=== PATIENT | female | born 1960 | race Caucasian/White ===

== ENCOUNTER → 2016-08-14 | Outpatient (CLI) | payer BC ==
[~2016-08-14] MED LIST: GABA-586 PO; IBUP200C9 PO; IOHEXOL 180 MG/ML 10 ML VIAL. ONE; TEMA15CA PO; methylPREDNISolone ACETATE 40 MG/ML VIAL. ONE; methylPREDNISolone ACETATE 80 MG/ML VIAL. ONE
--- NOTE | 2016-08-15 09:45 | PAIN ---
DATE OF SERVICE: 08/14/2016 INITIAL CONSULTATION CHIEF COMPLAINT: Low back and left lower extremity pain. HISTORY OF PRESENT ILLNESS: This is a 56-year-old female who presents with history of pain in the low back, left lower extremity for about 1 year, gradually increasing, getting worse over the past few months in the low back radiating to the posterior gluteus, posterolateral thigh, posterior calf, into the arch of the foot and into the toes, mostly in the lateral aspect. The patient reports it is a sharp stabbing pain, changes during the day, worse with standing and walking, worse with lying down, has waken her from her sleep significantly, numbness and tingling in the left leg as well. No symptoms on the right leg. The patient reports it awakens her from sleep at least 5-10 times a night, does not affect her bowel or bladder control, but does affect her ability to walk. 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 The patient reports no injury or accident that she is aware of, but the pain began to increase about a year ago and much worse over the past two to three months. The patient rates her disability rate from 0 to 10, 10 being the worst, is a 5 with family and home responsibilities, 7 with recreation and social activity, 4 with occupation, 0 with sexual behavior, 1 with self care and 1 with life support activities. The patient has had some chiropractic treatment as well as doing exercise on her own and a trigger point injection in the low back, which was not significantly improving the pain afterwards. The patient has been taking Advil, which reports did not help the pain. No other medications at this time for the pain itself. The patient reports no loss of motor function, but significant fatigability with the left leg, especially with standing and walking, but most painful when she is lying on her back, flat on her back. She is having to sleep on her right side, curled up in the position. The patient has some tingling in the leg as well as a burning sensation on the left side as well. PAST MEDICAL HISTORY: Significant for cigarette smoking, quit 12 years ago, history of arthritis, shingles, menopause. PREVIOUS SURGERIES: Include cataract extractions and bowel resection 15 years ago. Otherwise, the patient has been in fairly good health. CURRENT MEDICATIONS: Includes Advil [id number] and Tylenol, also temazepam and gabapentin. ALLERGIES: The patient has no known drug allergies. FAMILY HISTORY: Significant for hypertension and heart disease. SOCIAL HISTORY: The patient quit smoking 12 years ago, drinks about one alcoholic drink daily on average. The patient is , lives with her spouse. 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 REVIEW OF SYSTEMS: The patient's review of systems is positive for those items mentioned in the history of present illness. All systems reviewed and otherwise negative. It is complete, full, and well documented on the patient's chart. PHYSICAL EXAMINATION: VITAL SIGNS: The patient's blood pressure is 147/98, pulse 75, respirations 18, temperature 98.5 degrees Fahrenheit, height is 5 feet 2 inches and weighs 142 pounds. GENERAL: The patient is awake, alert, oriented, appropriate, very pleasant demeanor. HEENT: Shows normocephalic, atraumatic. Extraocular movements are intact and symmetrical. Oral cavity shows mucous membranes are moist and pink. Dentition is intact. NECK: Shows anterior throat supple without palpable lymphadenopathy noted. Swallow reflex is symmetrical. Neck shows full rotation and motion of the cervical spine without difficulty or tenderness including extension, flexion and lateral rotation greater than 45 degrees, closer to 90 degrees as well as full extension and full forward flexion without difficulty or pain reported. CHEST: Shows normal on inspection. Breath sounds are clear to auscultation bilaterally. HEART: Shows S1 and S2 clear. No murmurs are auscultated. ABDOMEN: Soft, nontender, and nondistended. No palpable organomegaly is noted. No rebound or guarding demonstrated, is normal on inspection. BACK: Shows spine grossly in midline. Normal appearing thoracic kyphosis and lumbar lordotic curvature. No previous bruises, lesions, rashes or scars are noted. The patient's lumbar paraspinous musculature shows symmetrical on inspection, with palpation is moderately tender in the mid low lumbar distribution, more so on the left than the right, but is symmetrical without evidence of atrophy, hypertrophy, no trigger points or radiation of pain with palpation. No tenderness over the sacrum or sacroiliac regions or the spinous processes. The patient shows good rotation and motion of lumbar spine, both laterally greater than 10 degrees, right and left as well as extension greater than 10 degrees, forward flexion 45 degrees without difficulty or pain reported. EXTREMITIES: Lower extremities show deep tendon reflexes at 2+ in the patellar and tendo calcaneus tendons are 1+. Motor exam is strong with approximately 4 on a scale of 5, left ankle, but 5/5 with right ankle and quadriceps and hamstring flexion 5/5 bilaterally. Peripheral pulses are 2+ in the posterior tibial and dorsalis pedis pulses. No peripheral edema is noted. No clubbing, no cyanosis. Lower extremities are warm and dry to touch, equal in color and appearance. Straight leg raise noted to be negative for reproduction of radicular symptoms bilaterally. Gaenslen's and Bayron's maneuvers are negative for any pain as well. The patient is able to stand, stand on her toes without difficulty or loss of balance, is able to walk heel toe step without difficulty, not using any assistive devices to ambulate and walks with a normal gait for short distance in the office. IMPRESSION: 1. This is a 56-year-old female with approximate 1-year history of low back, left lower extremity pain, worse over the past few months, in a radicular fashion. 2. MRI scan of the lumbar spine showing L5-S1 degenerative disk disease, a large left paracentral wide broad-based disk bulge producing severe left lateral recess stenosis and impingement on the left S1 nerve root. 3. History of arthritis. 4. History of cigarette smoking. PLAN: Options were discussed with the patient including conservative medical management, physical therapies, interventional techniques and she has done some chiropractic exercises already. She would like to try interventional techniques. We discussed a lumbar epidural steroid injection using description as well as anatomical models to describe the procedure. Risks were then discussed including, but not limited to bleeding, infection, possibility of epidural hematoma, subsequent neurological compromise, dural punctures, headaches, spinal cord and/or nerve damage, side effects of steroid medication and poor results regarding pain control. The patient understands and wished to proceed. The patient will return to clinic in approximately 2 weeks for followup. She was counseled as to return appointment, activity level and side effects to be aware of. DIAGNOSES: Lumbar radiculopathy with lumbar spinal stenosis and lumbar degenerative disk disease. PROCEDURES: Lumbar epidural steroid injection in translaminar approach at the L5-S1 level with fluoroscopic guidance, under sterile prep and drape using local anesthesia. MEDICATION INJECTED: 120 mg of Depo-Medrol plus 10 mL of preservative-free normal saline and 2 mL of Isovue for contrast. CONDITION AT DISCHARGE: Stable. The patient tolerated the procedure well, had no complications. KANWAL CURRY MD DR: MILLIE/lucy JOB#: [id number] / [id number]
== END | disposition home or self-care (01) ==
LOC: PNCL 08:35
PROVIDERS: ATTEND Anesthesiology
DX: M51.16 Intervertebral disc disorders with radiculopathy, lumbar region (principal); M48.06 Spinal stenosis, lumbar region; M19.90 Unspecified osteoarthritis, unspecified site; I10 Essential (primary) hypertension; Z87.891 Personal history of nicotine dependence; Z98.49 Cataract extraction status, unspecified eye
CPT/HCPCS: 62323; J1030; J1040

== ENCOUNTER → 2016-11-24 | Outpatient (CLI) | payer BC ==
--- NOTE | 2016-11-25 01:54 | PAIN ---
DATE OF SERVICE: 11/24/2016 PROGRESS NOTE FOR PAIN CLINIC DIAGNOSES: Lumbar radiculopathy with lumbar degenerative disk disease, lumbar spinal stenosis. HISTORY OF PRESENT ILLNESS: The patient is a 56-year-old female who returns for followup status post lumbar epidural steroid injection x 1. The patient reports initially about 80% improvement. The pains are returning in her low back and left leg, ____ back on 08/14/2016. She reports the pain has been coming back now for about 2 to 3 weeks. It has been awakening her from sleep when she lies on her left side, also has the pain radiating to the gluteus, posterior lateral thigh, posterior calf into the leg with some weakness in the leg, when she has been walking or standing for more than about 20 minutes. The patient reports aching sharp, tight, dull, burning, tingling, off and on, but not completely present at all times. The patient reports no new motor or sensory deficits. No new bowel or bladder incontinence or other complaints and otherwise feels like she is doing much better. PHYSICAL EXAMINATION: VITAL SIGNS: The patient's blood pressure is 151/95, pulse is 74, respirations 20, temperature 98.2 degrees Fahrenheit, height is 5 feet 2 inches, weight is 154 pounds. GENERAL: The patient is awake, alert, oriented, appropriate, very pleasant demeanor. HEENT: Head shows normocephalic, atraumatic. Extraocular movements are intact and symmetrical. Oral cavity shows mucous membranes moist and pink. Dentition is intact. NECK: Shows anterior throat supple without palpable lymphadenopathy noted. Swallow reflex is symmetrical. CHEST: Shows normal on inspection. Breath sounds clear to auscultation bilaterally. HEART: Shows S1 and S2 clear. No murmurs auscultated. ABDOMEN: Soft, nontender, nondistended. No palpable organomegaly is noted. No rebound or guarding demonstrated. BACK: Shows spine grossly in midline. Lumbar paraspinous shows some minor tenderness, but only diffusely in the lower lumbar distribution without radiation. The patient has good rotation and motion of the lumbar spine, both laterally as well as extension and flexion without difficulty. EXTREMITIES: Lower extremities showed deep tendon reflexes 2+ in the patellar and 1+ tendo calcaneus tendons. Motor exam is approximately 4 on a scale of 5 with left dorsiflexion and extension of the ankle with 5/5 on the right and 5/5 with quadriceps and hamstring flexion bilaterally. PLAN: Options were discussed with the patient. The patient's old chart was reviewed as her current medication regimen updated. Current review of systems updated today as well. We will proceed with a second lumbar epidural steroid injection today with fluoroscopic guidance. Risks were again discussed including, but not limited to bleeding, infection, possibility of epidural hematoma and subsequent neurologic compromise, dural puncture, headaches, spinal cord and/or nerve damage, side effects of steroid medication and poor results regarding pain control. The patient understands and wishes to proceed. The patient will return to clinic in approximately 2 weeks for followup. She was counseled as to return appointment, activity level and side effects to be aware of. DIAGNOSIS: Lumbar radiculopathy with lumbar spinal stenosis, lumbar degenerative disk disease. PROCEDURE: Lumbar epidural steroid injection in translaminar approach at L5-S1 level using C-arm fluoroscopic guidance under sterile prep and drape using local anesthetic. MEDICATIONS INJECTED A total of 120 mg Depo-Medrol plus 10 mL preservative-free normal saline and 2 mL of Isovue for contrast. CONDITION AT DISCHARGE: Stable. The patient tolerated procedure well, had no complications. KANWAL CURRY MD DR: MILLIE/lucy JOB#: [id number] / [id number]
== END | disposition home or self-care (01) ==
LOC: PNCL 10:29
PROVIDERS: ATTEND Anesthesiology
DX: M51.16 Intervertebral disc disorders with radiculopathy, lumbar region (principal); M48.06 Spinal stenosis, lumbar region
CPT/HCPCS: 62323; J1030; J1040

== ENCOUNTER → 2017-01-26 | Outpatient (CLI) | payer BC ==
--- NOTE | 2017-01-26 16:30 | PAIN ---
DATE OF SERVICE: 01/26/2017 PROGRESS NOTE FOR PAIN CLINIC DIAGNOSES: Lumbar radiculopathy with lumbar degenerative disk disease, spinal stenosis, and spinal stenosis. HISTORY OF PRESENT ILLNESS: The patient is a 56-year-old female who returns for followup status post lumbar epidural steroid injection x 2. The patient reports initially about 80% improvement, last injection was with only minimal decreased pain, but still significant improvement with the first shot. The patient reports still some pain in the low back, left leg, posterior gluteus, posterior thigh, posterior calf radiating to the foot with tingling, burning, stabbing, dull, sharp, and aching pain, rates it as 10 on a scale of 10 at its worst, 4 on a scale of 10 today. The patient reports no new motor or sensory deficits, but does not awaken her from sleep at night, much better with lying down or sitting, but much worse with standing and walking. No motor or sensory deficits on the left side. No bowel or bladder incontinence at this time. PHYSICAL EXAMINATION: VITAL SIGNS: The patient's blood pressure 149/82, pulse 72, respirations are 20, temperature 98.0 degrees Fahrenheit, height is 5 feet 2 inches, and weighs 142 pounds. GENERAL: The patient is awake, alert, oriented, appropriate, very pleasant demeanor. HEENT: Head shows normocephalic, atraumatic. Extraocular movements are intact, symmetrical. Oral cavity: Mucous membranes moist and pink. Dentition is intact. NECK: Shows anterior throat supple without palpable lymphadenopathy noted. Swallow reflex is symmetrical. CHEST: Shows normal on inspection. Breath sounds are clear to auscultation bilaterally. HEART: Shows S1 and S2 clear. ABDOMEN: Soft, nontender, and nondistended. BACK: Shows spine grossly in the midline. Lumbar paraspinous muscle shows some moderate tenderness with palpation, but is symmetrical, full rotational motion of lumbar spine, both laterally as well as extension and flexion without difficulty. No tenderness over the sacrum or sacroiliac regions. EXTREMITIES: Lower extremities show deep tendon reflexes 2+ in the patellar, 1+ tendo-calcaneus tendons are equal. Motor exam is approximately 4 on a scale of 5 of left ankle and 5/5 quadriceps and hamstrings, 5/5 on the right with ankle and quadriceps and hamstring. Options were discussed with the patient and the patient's old chart was reviewed as her current medication regimen updated. Current review of systems updated today as well. We will proceed with a third in the series of lumbar epidural steroid injection with fluoroscopic guidance. Risks were again discussed including, but not limited to bleeding, infection, possibility of epidural hematoma and subsequent neurologic compromise, dural puncture, headaches, spinal cord and/or nerve damage, side effects of steroid medication, and poor results regarding pain control. The patient understands and wishes to proceed. The patient will return to clinic in approximately 2 weeks for followup. She was counseled on return appointment, activity level and side effects to be aware of. DIAGNOSES: Lumbar radiculopathy with lumbar degenerative disk disease, lumbar spinal stenosis. PROCEDURE: Lumbar epidural steroid injection in translaminar approach at the L5-S1 level using C-arm fluoroscopic guidance under sterile prep and drape using local anesthetic. Medication injected is a total of 120 mg of Depo-Medrol plus 10 mL of preservative-free normal saline, 2 mL of Isovue for contrast. CONDITION AT DISCHARGE: Stable. The patient tolerated procedure well, had no complications. KANWAL CURRY MD DR: MILLIE/ulcy JOB#: [id number] / [id number]
== END | disposition home or self-care (01) ==
LOC: PNCL 09:11
PROVIDERS: ATTEND Anesthesiology
DX: M51.16 Intervertebral disc disorders with radiculopathy, lumbar region (principal); M48.06 Spinal stenosis, lumbar region
CPT/HCPCS: 62323; J1030; J1040

== ENCOUNTER 2017-08-27 13:51 | Emergency (ER) | payer BC ==
[2017-08-27 15:47] LABS: ADD MAN DIFF? NO
[2017-08-27 15:50] LABS: BASO # 0.1 x10^3/uL (0.0-0.2); BASO % 1 % (0-3); EOS % 0 % (0-3); HEMATOCRIT 42.6 % (36.0-47.0); HEMOGLOBIN 14.1 g/dL (12.0-15.5); LYMPH # 0.8 x10^3/uL (1.0-4.8); LYMPH % 11 % (24-48); MEAN CORPUSCULAR HEMOGLOBIN 27 pg (25-35); MEAN CORPUSCULAR HGB CONC 33 g/dL (31-37); MEAN CORPUSCULAR VOLUME 82 fL (79-100); MONO # 0.5 x10^3/uL (0.0-1.1); MONO % 7 % (0-9); NEUT # 6.1 x10^3uL (1.8-7.7); NEUT % 81 % (31-73); PLATELET COUNT 247 x10^3/uL (140-400); RED BLOOD COUNT 5.22 x10^6/uL (3.50-5.40); RED CELL DISTRIBUTION WIDTH 13.5 % (11.5-14.5); WHITE BLOOD COUNT 7.5 x10^3/uL (4.0-11.0)
[2017-08-27] MEDS: ONDANSETRON PF 4 MG/2 ML VIAL. IV (15:56)
[2017-08-27] MEDS: IV NORMAL SALINE 1000ML BAG 1,000 ML IV ×2 (15:56→17:30)
[2017-08-27 15:59] LABS: ANION GAP 11 (6-14); BLOOD UREA NITROGEN 11 mg/dL (7-20); BUN/CREATININE RATIO 14 (6-20); CALCIUM 8.9 mg/dL (8.5-10.1); CARBON DIOXIDE 29 mmol/L (21-32); CHLORIDE 98 mmol/L (98-107); CREATININE 0.8 mg/dL (0.6-1.0); GFR 73.4; GLUCOSE 102 mg/dL (70-99); POTASSIUM 3.6 mmol/L (3.5-5.1); SODIUM 138 mmol/L (136-145)
[2017-08-27 16:05] LABS: ALBUMIN 3.5 g/dL (3.4-5.0); ALBUMIN/GLOBULIN RATIO 0.9 (1.0-1.7); ALK PHOS 86 U/L (46-116); ALT (SGPT) 43 U/L (14-59); AST (SGOT) 38 U/L (15-37); TOTAL BILIRUBIN 0.3 mg/dL (0.2-1.0); TOTAL PROTEIN 7.2 g/dL (6.4-8.2)
[2017-08-27 16:10] LABS: LACTIC ACID 1.2 mmol/L (0.4-2.0)
[2017-08-27 16:42] LABS: INFLUENZA A PATIENT NEGATIVE (NEGATIVE); INFLUENZA B PATIENT POSITIVE (NEGATIVE); OBC FLU VALID
[2017-08-27 17:07] LABS: BILIRUBIN,URINE NEGATIVE (NEG); CLARITY,URINE CLOUDY; COLOR,URINE YELLOW; GLUCOSE,URINE NEGATIVE (NEG); NITRITE,URINE NEGATIVE (NEG); PROTEIN,URINE NEGATIVE (NEG-TRACE)
[2017-08-27 17:17] LABS: BACTERIA,URINE 0 /HPF (0-FEW); RBC,URINE 0 /HPF (0-2); SQUAMOUS EPITHELIAL CELL,UR FEW /LPF; WBC,URINE 0 /HPF (0-4)
[2017-08-27] MEDS: PENICILLIN G BENZATHINE LA 1,200,000 UNIT/2 ML DISP.SYRIN. IM (18:13)
[2017-08-28 07:00] LABS: NEGATIVE OBC STREP NEG; POSITIVE OBC STREP POS
== END 2017-08-27 18:30 | disposition home or self-care (01) ==
LOC: ER 13:51
DX: J10.1 Influenza due to other identified influenza virus with other respiratory manifestations (principal)
CPT/HCPCS: 36415; 71045; 80053; 81001; 83605; 85025; 87040; 87070; 87804; 87804-59; 87880; 93005; 96361; 96372; 96374; 99285-25; J0561; J2405; J7030

== ENCOUNTER → 2020-08-16 | Outpatient (CLI) | payer BC ==
[2017-08-27 18:27] VITALS: BP 137/76
[~2020-08-16] MED LIST changes: +FAMO-63 PO; -GABA-586 PO; +GABA300C18 PO; -IOHEXOL 180 MG/ML 10 ML VIAL. ONE; +PROM25TA10 PO; -methylPREDNISolone ACETATE 40 MG/ML VIAL. ONE; -methylPREDNISolone ACETATE 80 MG/ML VIAL. ONE
--- NOTE | 2020-08-16 13:34 | KCIC ---
EXAMINATION: CT MAXILLOFACIAL WITHOUT CONTRAST CLINICAL HISTORY: Maxillary sinusitis, drainage, productive cough. Symptoms 1 yr. Technique: Spiral high resolution axial unenhanced images were obtained through the facial bones with sagittal and coronal planar reconstructions. CT Dose Reduction Employed: One or more of the following individualized dose reduction techniques wer e utilized for this examination: 1. Automated exposure control 2. Adjustment of the mA and/or kV ac cording to patient size 3. Use of iterative reconstruction technique. COMPARISON: None FINDINGS: Soft Tissues: No evidence of soft tissue mass or fluid collection. Facial Bones: No evidence of acute fracture or destructive osseous lesion. Orbits: No evidence of acute orbital fracture. Globes are intact. Soft tissue planes of the orbits ma intained. Paranasal Sinuses: Paranasal sinuses and mastoids clear. Foreign Bodies: No evidence of radiopaque foreign body. Other: Multiple missing bilateral maxillary and left mandibular teeth. Partially visualized craniover tebral degenerative changes. IMPRESSION: No evidence of significant paranasal sinus disease. Electronically signed by: Sergo Gordon DO (08/16/2020 1:31 PM) [id number]
== END ==
LOC: KCIC CT 12:28
PROVIDERS: ATTEND Family Medicine
DX: J32.0 Chronic maxillary sinusitis (principal)
CPT/HCPCS: 70486

== ENCOUNTER → 2021-03-29 | Outpatient (CLI) | payer BC ==
[2017-08-27 18:27] VITALS: BP 137/76
--- NOTE | 2021-03-29 15:48 | KCIC ---
Bilateral digital screening mammograms: Reason for examination: Routine screening. Comparison is made to previous study dated 12/31/2011. Interpretation was made with the benefit of CAD. Findings: Breast density: Category B. There are scattered areas of fibroglandular density. There are no dominant masses, suspicious calcifications or architectural distortions. Impression: No evidence of malignancy. Assessment: BI-RADS Category 1: Negative. Recommendation: Routine screening mammograms. This patient's information has been entered into a reminder system for the patient to be notified wit h the results of her examination and a target date for the next mammogram. Electronically signed by: Nohemy Chaidez MD (03/29/2021 3:45 PM) [id number]
== END ==
LOC: KCIC MAMMO 12:15
PROVIDERS: ATTEND Family Medicine
DX: Z12.31 Encounter for screening mammogram for malignant neoplasm of breast (principal)
CPT/HCPCS: 77067

== ENCOUNTER → 2021-10-11 | Outpatient (CLI) | payer BC ==
[2017-08-27 18:27] VITALS: BP 137/76
--- NOTE | 2021-10-11 12:46 | KCIC ---
XR CHEST 2V INDICATION: Reason: COUGH, FEVER, FATIGUE 5 DAYS, COPD, COVID IN AUGUST / . Instructions: / Histor y: . COMPARISON STUDY: 09/06/2018. FINDINGS: Lungs: Normal lung volume. Right lower lobe heterogeneous opacities. Pleura: No pleural effusion or pneumothorax. Heart and Mediastinum: The cardiomediastinal silhouette is normal. Atherosclerosis of the thoracic ao rta. Bones and Soft Tissues: Degenerative changes of the spine. IMPRESSION: Right lower lobe heterogeneous opacities, likely an infectious/inflammatory process. Electronically signed by: Jerod Villegas MD (10/11/2021 12:44 PM) [id number]
== END ==
LOC: RAD 09:34
PROVIDERS: ATTEND Family Medicine
DX: R05.9 Cough, unspecified (principal); R50.9 Fever, unspecified; I70.0 Atherosclerosis of aorta; M47.814 Spondylosis without myelopathy or radiculopathy, thoracic region
CPT/HCPCS: 71046